=== PATIENT | female | born 1990 | race Caucasian/White ===

== ENCOUNTER 2017-01-04 13:25 | Outpatient (CLI) | payer OTHER ==
[~2017-01-04 13:25] MED LIST: ASPIRIN325 MG PO; CLONIDINE0.2 MG/24 TOP; DILAUDID8 MG PO; KLONOPIN1 MG PO; PRAZOSIN HCL2 MG PO; PRENATAL PO; PRENATAL1 TAB PO; PRILOSEC20 MG PO; PROAIR HFA IN; ZOFRAN ODT4 MG PO
--- NOTE | 2017-01-04 15:57 | DIAGNOSTIC IMAGING REPORT ---
PROCEDURE: MR LOWER EXT JOINT WO CONT-LT INDICATION: Left knee pain and swelling. TECHNIQUE: PD and FAT-SAT PD sagittal and coronal images. FAT-SAT PD axial images. High-resolution T2 sagittal images of the cruciate ligaments. (Total of 6 sequences). COMPARISON: None. FINDINGS: Study is partially limited due to body habitus. There is mild lateral subluxation (7 mm) of the left patellofemoral joint with moderate chondromalacia of the lateral facet. Quadriceps and patellar tendons are normal. Medial meniscus and medial collateral ligament normal. Findings suggest subtle fraying of the cranial surface of the posterior and midportions of the lateral meniscus with probable subtle tears. Lateral collateral ligament is normal. There is a small left knee effusion. IMPRESSION: 1. Study partially limited due to body habitus. 2. 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 3. Findings suggest subtle tears of the cranial surface of the posterior midportions of the lateral meniscus. 4. Small left knee effusion.
== END 2017-01-04 23:00 | disposition home or self-care (01) ==
LOC: MRI SRH 13:25
DX: S83.012A Lateral subluxation of left patella, initial encounter (principal); M22.42 Chondromalacia patellae, left knee; M25.462 Effusion, left knee